=== PATIENT | female | born 1975 | race Caucasian/White ===

== ENCOUNTER 2016-05-31 13:34 | Emergency (ER) | payer OTHER ==
--- NOTE | ~2016-05-31 | EKG ---
PATIENT: GORGE WHITE UNIT #: [id number] Ventricular Rate: 56 BPM Atrial Rate: 56 BPM P-R Interval: 144 ms QRS Duration: 90 ms Q-T Interval: 434 ms QTC Calculation(Bezet): 418 ms P [place]: 12 degrees Calculated R [place]: 34 degrees Calculated T [place]: 10 degrees Diagnosis Line: Sinus bradycardia Diagnosis Line: Otherwise normal ECG Diagnosis Line: No previous ECGs available Diagnosis Line: Confirmed by DAVE BAI MD ([id number]) on 06/01/2016 Diagnosis Line: 9:15:38 PM INTERPRETING MD: BHUMIKA JERONIMO
--- NOTE | ~2016-05-31 | CR63 ---
[facility] A Service of [facility] RADIOLOGY TEXT RESULTS PATIENT: GORGE WHITE LOCATION: [facility] : 75 UNIT #: [id number] AGE: [address]: Randy Castaneda MD SEX: F ORDER DR: [id number] [facility] [address] [place], [place] [address] [id number] E MR#: [id number] Acc #: [id number] NAME: GORGE WHITE : 1975 SEX: F STUDY DATE/TIME: 05/31/2016 13:51 UNIT: [facility] ROOM: STUDY DESCRIPTION: CR Chest 2 View Attending Physician: Randy Castaneda M.D. Ordering Physician: Randy Castaneda M.D. Primary Care Physician: No Primary Care Physician MEDICAL IMAGING REPORT This report is preliminary unless electronic signature is present EXAM PA and lateral chest radiograph. DATE OF EXAM 05/31/2016 INDICATION Cough today. FINDINGS Heart size is within normal limits. Lungs appear clear. No focal infiltrates are identified. There is no pneumothorax or pleural effusion. No aggressive osseous abnormalities are seen. IMPRESSION No acute disease. Dictated by... Mariel Guardado M.D. THIS IS AN ELECTRONICALLY VERIFIED REPORT Mariel Guardado M.D. at 06/01/2016 4:38 PM AFF/jt TD: 05/31/2016 16:18 JOB #: [id number] MEDICAL IMAGING REPORT Page 1 of 1 COPY
--- NOTE | ~2016-05-31 | CT71 ---
[facility] A Service of [facility] RADIOLOGY TEXT RESULTS PATIENT: GOREG WHITE LOCATION: [facility] : 75 UNIT #: [id number] AGE: [address]: Randy Castaneda MD SEX: F ORDER DR: [id number] [facility] [address] [place], [place] [address] [id number] E MR#: [id number] Acc #: [id number] NAME: GORGE WHITE : 1975 SEX: F STUDY DATE/TIME: 05/31/2016 13:43 UNIT: [facility] ROOM: STUDY DESCRIPTION: CT Head Wo Contrast Attending Physician: Randy Castaneda M.D. Ordering Physician: Randy Castaneda M.D. Primary Care Physician: Primary Care Physician No MEDICAL IMAGING REPORT This report is preliminary unless electronic signature is present EXAM Noncontrast head CT HISTORY Headaches, diarrhea since 2:30 this morning. TECHNIQUE This CT exam was performed with one or more of the following radiation dose reduction techniques: automatic exposure control, adjustment of mA and/or kV according to patient size, and iterative reconstruction. FINDINGS Axial noncontrast imaging of the brain demonstrates the brain parenchyma to be normal. No evidence of mass, mass effect or midline shift. No hemorrhage or abnormal extraaxial fluid collections. Ventricles, sulci and basilar cisterns appear normal. Minimal right posterior ethmoid sinus mucosal disease. Mastoids, bony calvaria, skull base unremarkable. IMPRESSION Negative noncontrast head CT. Dictated by... Orlando Moreno M.D. THIS IS AN ELECTRONICALLY VERIFIED REPORT Orlando Moreno M.D. at 06/01/2016 12:28 PM Chaitanya TD: 05/31/2016 15:24 JOB #: [id number] [facility] A Service of [facility] RADIOLOGY TEXT RESULTS PATIENT: GORGE WHITE LOCATION: [facility] : 75 UNIT #: [id number] AGE: [address]: Randy Castaneda MD SEX: F ORDER DR: MEDICAL IMAGING REPORT Page 1 of 1 COPY
[2016-05-31 13:23] LABS: BASOPHIL% 0.3 % (0-2.5); EOSINOPHIL% 0.1 % (0.0-7.0); HEMATOCRIT 44.6 % (35.0-45.0); HEMOGLOBIN 14.4 gm/dL (12.0-16.0); LYMPHOCYTE# 2.1 X10e3 (1.0-3.5); LYMPHOCYTE% 18.5 % (17.0-45.0); MEAN CELL VOLUME 87.5 FL (83-96); MEAN CORPUSCULAR HEMOGLOBIN 28.2 PG (28-34); MEAN CORPUSCULAR HGB CONC 32.2 g/dL (30-36); MEAN PLATELET VOLUME 9.9 FL (6.5-11.5); MONOCYTE# 0.7 X10e3 (0-1.0); MONOCYTE% 6.2 % (3.0-12.0); NEUTROPHIL# 8.6 X10e3 (1.5-7.1); NEUTROPHIL% 74.9 % (40-75); PLATELET COUNT 183 X10e3 (140-420); RED CELL DISTRIBUTION WIDTH 15.3 % (11.0-15.5); WHITE BLOOD COUNT 11.4 X10e3 (4.0-10.5)
[2016-05-31 13:35] LABS: DIFF IND NO
[2016-05-31 13:51] LABS: INFLUENZA A NEG (NEG); INFLUENZA B NEG (NEG)
[2016-05-31 14:28] LABS: ALBUMIN SERUM 4.1 g/dL (3.5-5.0); BILIRUBIN, DIRECT 0.1 mg/dL (0.0-0.2); BILIRUBIN,INDIRECT 0.4 mg/dL (0.0-0.9); BILIRUBIN,TOTAL 0.5 mg/dL (0.2-2.0); BUN/CREATININE RATIO 16.66; CALCIUM SERUM 9.3 mg/dL (8.4-10.2); CREATININE SERUM 0.6 mg/dL (0.6-1.4); GLOM FILT RATE Estimated 113.2 mL/min (>60); POTASSIUM 3.8 mmol/L (3.5-5.1); PROTEIN TOTAL SERUM 7.8 g/dL (6.0-8.3)
[2016-05-31 14:56] LABS: URINE SOURCE CLEAN CATCH
[2016-05-31 15:31] LABS: POC - TROPONIN <0.05 ng/mL (<=0.05)
[2016-05-31 15:39] LABS: URINE APPEARANCE CLEAR; URINE BILIRUBIN NEG (NEG); URINE BLOOD NEG (NEG); URINE COLOR YELLOW; URINE GLUCOSE NEG (NEG); URINE KETONE NEG (NEG); URINE LEUKOCYTE ESTERASE NEG (NEG); URINE NITRATE NEG (NEG); URINE PH 8.5 (5-8); URINE PROTEIN NEG (NEG); URINE SPECIFIC GRAVITY 1.008 (1.003-1.035); URINE UROBILINOGEN 0.2 MG/DL (NEG)
[2016-05-31 15:43] LABS: CULTURE INDICATED? NO
== END 2016-05-31 16:07 | disposition home or self-care (01) ==
LOC: CED 13:34
PROVIDERS: Emergency Medicine
DX: R51 Headache (principal); R19.7 Diarrhea, unspecified; F41.9 Anxiety disorder, unspecified; Z88.2 Allergy status to sulfonamides; Z88.5 Allergy status to narcotic agent; Z88.8 Allergy status to other drugs, medicaments and biological substances
CPT/HCPCS: 36415; 70450; 71020; 80048; 80076; 81003; 82553; 83690; 84484; 85025; 87804; 93005; 96361; 96374; 96375; 99284; J1200; J2550